=== PATIENT | male | born 1985 | race Caucasian/White ===

== ENCOUNTER 2020-12-08 15:05 | Emergency (ER) | payer BC ==
[2020-12-08 19:53] LABS: HEMOGLOBIN 16.6 gm/dl (14.0-17.5); RED BLOOD COUNT 5.51 M/UL (4.20-5.50); WHITE BLOOD COUNT 7.4 K/UL (4.5-11.0)
[2020-12-08 20:14] LABS: BUN/CREATININE RATIO 8 (0-10)
== END 2020-12-09 00:20 | disposition home or self-care (01) ==
LOC: ER1 15:05
PROVIDERS: Physician Assistant
DX: Z23 Encounter for immunization (principal); U07.1 COVID-19; E11.9 Type 2 diabetes mellitus without complications
CPT/HCPCS: 36600; 71045; 80053; 82803; 83605; 85025; 86140; 87040; 93005; 99285; J7030; M0243; U0002